=== PATIENT | female | born 1970 | race Caucasian/White ===

== ENCOUNTER 2017-09-23 12:31 | Day surgery (SDC) | payer OTHER ==
[~2017-09-23 12:31] MED LIST: Buffered Lidocaine 0.9% SYRIN* 5 ML/SYR SYRINGE INTRADERM ONE; Famotidine IV* 10 MG/ML 2 ML (20 mg) IV ONE
[2017-09-23] MEDS ORDERED: Famotidine IV* 10 MG/ML 2 ML (20 mg) ONE (12:36)
[2017-09-23] MEDS ORDERED: Naloxone* 0.4 MG/ML 1 ML VIAL IV PRN (13:21)
[2017-09-23] MEDS ORDERED: Acetaminophen TAB* 325 MG PO PRN (13:21)
[2017-09-23] MEDS ORDERED: DiMENhydriNATE IV* 50 MG/ML VIAL IV PUSH PRN (13:21)
[2017-09-23 16:38] VITALS: BP 109/74
--- NOTE | 2017-09-24 14:43 | PRO ---
CC: Tierra Greene NP * GASTROENTEROLOGY OPERATIVE REPORT: DATE OF PROCEDURE: 09/23/17. OPERATIVE PROCEDURE: Colonoscopy to terminal ileum. SURGEON: Aspen Singh MD. ANESTHESIA: MAC. HISTORY OF PRESENT ILLNESS: Rachel is a pleasant 47-year-old female who is presenting today for screening colonoscopy. She does admit to maternal grandmother with colon cancer and she was greater than 63 years in age when diagnosed. She currently denies any gastrointestinal complaints, but was seen in the office with complaints of rectal bleeding at that time. PREOPERATIVE DIAGNOSIS: Screening colonoscopy. POSTOPERATIVE DIAGNOSES: 1. Normal-appearing terminal ileum. 2. Small mouthed diverticula in the sigmoid colon. 3. 5 mm sessile rectosigmoid polyp with polypectomy. 4. Small non-bleeding internal hemorrhoids on retroflexion. 5. Fair colonoscopy preparation. RECOMMENDATIONS: The timing of the repeat colonoscopy will be determined upon review of biopsy results. DESCRIPTION OF PROCEDURE: Colonoscopy was explained in detail to the patient. The risks, benefits, complications, alternatives and possibilities of missed lesions were explained and understood. Complications included, but were not limited to reaction to anesthesia, aspiration, increased risk of bleeding, and perforation. All questions were answered. The patient demonstrated understanding of the conversation and informed consent was obtained. Next, the patient was brought to the endoscopy suite, placed in the left lateral recumbent position where blood pressure, cardiac, and oxygen monitors were applied. The patient was found to be a fit candidate for monitored anesthesia care. After adequate IV sedation was achieved, a digital rectal exam was performed, which revealed normal sphincter tone. No palpable masses were appreciated. Next, a standard pediatric Olympus colonoscope was inserted through the rectum, maneuvered all the way to the cecal base where the ileocecal valve and appendiceal orifice were identified and photographed. Next , the terminal ileum was intubated and was normal appearing. Subsequently, the colonoscope was withdrawn in a fashion that allowed adequate visualization of the bowel. The patient overall had a fair colonoscopy preparation. Aggressive irrigation and suctioning was performed in order to adequately visualize the mucosa. The cecum, ascending colon, transverse colon, descending colon were normal appearing. Entry into the sigmoid colon revealed a few small mouthed diverticula. Withdrawal into the rectosigmoid area revealed a 5- mm sessile polyp that was removed via Jumbo cold forceps. Hemostasis was seen at the polypectomy site. Further withdrawal into the rectum revealed small non- bleeding internal hemorrhoids. Air was then removed from the patient. Colonoscope was removed from the patient. The patient tolerated the procedure well. There were no immediate complications. After a period of observation, the patient was discharged home with a coal tram driver in stable condition. Thank you, Tierra Greene NP, for allowing us to participate in the care of your patient. If you should have any further questions or concerns, please do not hesitate to me. [id number]/[facility] #: [id number] [place]
== END 2017-09-23 16:50 | disposition home or self-care (01) ==
LOC: OR 12:31
PROVIDERS: ATTEND Internal Medicine Gastroenterology
DX: Z12.11 Encounter for screening for malignant neoplasm of colon (principal); K63.5 Polyp of colon; K64.8 Other hemorrhoids; K57.30 Diverticulosis of large intestine without perforation or abscess without bleeding; J45.909 Unspecified asthma, uncomplicated; F17.200 Nicotine dependence, unspecified, uncomplicated; E78.5 Hyperlipidemia, unspecified
CPT/HCPCS: 88305

== ENCOUNTER 2018-09-21 06:25 | Day surgery (SDC) | payer OTHER ==
[~2018-09-21 06:25] MED LIST changes: -Buffered Lidocaine 0.9% SYRIN* 5 ML/SYR SYRINGE INTRADERM ONE; +Buffered Lidocaine 1% SYRIN* 1 ML/SYRINGE INTRADERM ONE; +Dexamethasone IV* 4 MG/ML 1 ML (4 MG) IV SLOW PU ONE; +Lactated Ringers 1000 ML Bag* 1,000 ML IV SCH
[2018-09-21] MEDS ORDERED: Dexamethasone IV* 4 MG/ML 1 ML (4 MG) ONE ×2 (06:26→07:14)
[2018-09-21] MEDS ORDERED: Famotidine IV* 10 MG/ML 2 ML (20 mg) ONE (06:27)
[2018-09-21] MEDS ORDERED: ceFAZolin 2 GM PREMIX in ORs 2 GM/50 ML BAG IVPB ONE (06:29)
[2018-09-21] MEDS ORDERED: Lidocaine 1% INJ* 10 MG/ML 30 ML SDV ONE (07:13)
[2018-09-21] MEDS ORDERED: Bupivacaine 0.5% W/EPI SDV* 30 ML VIAL ONE (07:14)
[2018-09-21] MEDS ORDERED: Midazolam* 1 MG/ML 5 ML VIAL (5 MG) ONE (07:28)
[2018-09-21] MEDS ORDERED: fentaNYL* 50 MCG/ML 2 ML VIAL (100 MCG VIAL) ONE ×2 (07:28→08:17)
[2018-09-21] MEDS ORDERED: Ketorolac INJ* 30 MG/ML 1 ML VIAL ONE (07:29)
[2018-09-21] MEDS ORDERED: Ondansetron INJ* 2 MG/ML VIAL ONE (07:29)
[2018-09-21] MEDS ORDERED: Propofol* 10 MG/ML 20 ML BTL ONE (07:29)
[2018-09-21] MEDS ORDERED: Naloxone* 0.4 MG/ML 1 ML VIAL IV PRN (08:05)
[2018-09-21] MEDS ORDERED: Ondansetron INJ* 2 MG/ML VIAL IV PRN (08:05)
[2018-09-21] MEDS ORDERED: DiMENhydriNATE IV* 50 MG/ML VIAL IV PUSH PRN (08:05)
[2018-09-21] MEDS ORDERED: oxyCODONE/Acetamin 5/325 MG* TAB PO PRN (08:05)
[2018-09-21 08:43] VITALS: BP 110/63
--- NOTE | 2018-09-21 10:11 | OP ---
OPERATIVE REPORT: DATE OF OPERATION: 09/21/18 DATE OF : 66 SURGEON: Juan Alberto Newman DPM. MUSIC BOX MECHANIC: None. ANESTHESIA: MAC with local. PRE-OP DIAGNOSIS: Chronic painful right heel with plantar fasciosis and large calcaneal spur, right heel. POST-OP DIAGNOSIS: Chronic painful right heel with plantar fasciosis and large calcaneal spur, right heel. OPERATIVE PROCEDURE: 1. Plantar fasciotomy, right heel. 2. Excision of calcaneal spur, right heel. PATHOLOGY: Resected portions of the calcaneal spur and adjacent fascia from right heel. HEMOSTASIS: Pneumatic ankle tourniquet. ESTIMATED BLOOD LOSS: Less than 20 cc. INDICATIONS: The patient with chronic right heel pain. Prior MRI demonstrates inflammation within t he spur and adjacent calcaneus thickening and findings consistent with plantar fasciosis. She has ex hausted nonsurgical options. She cannot walk without pain and she opts for surgery at this time to a ttempt to decrease pain and improve function. DESCRIPTION OF PROCEDURE: The patient brought to the operating room and placed on the operating room table in the supine position. Anesthesia department administered IV sedation and peripheral nerve b locks were performed about the right ankle and heel with a 1:1 mixture of 1% lidocaine plain and 0.5% Marcaine plain. The right foot was prepped and draped in the usual fashion. The right foot was then exsanguinated with an Esmarch bandage and pneumatic ankle tourniquet was inflated to 250 mmHg about a well-padded right ankle. Attention was directed to the medial aspect of the right heel where a luda ear incision was made. The incision was deepened through subcutaneous tissue with care being taken t o retract neurovascular structures and cauterize superficial bleeders as needed. Dissection was hess ied down to the deep fascia, the portion of the abductor hallucis and the plantar fascia origin. Luda ear incision was made and blunt dissection was used to free and identify the origin of the plantar fa scia and the adjacent spur. Using a freer as well as the fluoroscopy, the spur was palpated and visu alized. Using a scissors, approximately two-thirds of the plantar fascia was transected, then rongeu r was used to resect the adjacent calcific portion of the fascia as well as portion of the calcaneal spur. Portions of this were sent off the field as specimen. The C-arm was used to confirm adequate resection of the spur; however, portion of the spur far lateral was determined to be left intact give n the remaining portion of the plantar fascia desired to be left intact as well. A handheld rasp was used to further resect and smooth the portion of the calcaneus was flushed with copious amoun ts of normal sterile saline. The subcutaneous tissue was reapproximated with 4-0 Vicryl and skin was closed with 3-0 and 4-0 nylon. 12 mg of dexamethasone phosphate was infiltrated into the surgical s ite and the surgical site was dressed with Xeroform gauze and a bulky mild decompressive dressing and 4x4 gauze, Shilo, and ABD pad as well, secured with a Coban wrap. The pneumatic ankle tourniquet wa s deflated about the right ankle and prompt hyperemic response was noted about all 5 digits of the danielle morales's right foot. Having appeared to tolerated the procedure and anesthesia well, the patient was transported via cart from the operating room to Recovery in satisfactory condition with cap refill le ss than 3 seconds to all digits of the right foot. [id number]/[facility] #: [id number]
== END 2018-09-21 09:18 | disposition home or self-care (01) ==
LOC: OREAST 06:25
PROVIDERS: ATTEND Podiatrist Foot Surgery
DX: M72.2 Plantar fascial fibromatosis (principal); M77.31 Calcaneal spur, right foot; J45.909 Unspecified asthma, uncomplicated; E11.9 Type 2 diabetes mellitus without complications; Z79.84 Long term (current) use of oral hypoglycemic drugs
CPT/HCPCS: 76000; 88304; 88311; J0690; J1100; J1885; J2250; J2405; J2704; J3010

== ENCOUNTER 2018-11-06 17:30 | Emergency (ER) | payer OTHER ==
[2018-11-06 17:53] VITALS: BP 138/84
--- NOTE | 2018-11-06 19:15 | UC ---
Lower Extremity/Ankle HPI - HPI Summary HPI Summary: 48-year-old female comes in with a chief complaint of right leg pain after a fall. The patient slipped and fell on ice. Had immediate pain in the right leg on the lateral aspect all the way from just below the knee to the right ankle. She is unable to bear any weight. She is extreme pain both in the proximal fibula and in the ankle. No laceration. Holding it still decreases the pain. - History of Current Complaint Chief Complaint: UCLowerExtremity Stated Complaint: LEG INJURY Time Seen by Provider: 11/06/18 18:31 Hx Last Menstrual Period: post menopause Pain Intensity: 10 - Allergies/Home Medications Allergies/Adverse Reactions: Allergies Allergy/AdvReac Type Severity Reaction Status Date / Time codeine Allergy Severe Anaphylatic Verified 09/21/18 06:35 Shock, hives latex Allergy Intermediate rash, hives Verified 09/21/18 06:35 COCONUT Allergy Severe Anaphylatic Uncoded 09/21/18 06:35 Shock wasps Allergy Severe Difficulty Uncoded 09/21/18 06:35 Breathing/Wheezing, HIVES PMH/Surg Hx/FS Hx/Imm Hx Previously Healthy: Yes Endocrine History: Diabetes Respiratory History: Asthma - Surgical History Surgical History: Yes Surgery Procedure, Year, and Place: right knee surgery x2 [place] 1986,1999; 2014- LEFT KNEE SURGERY [facility] [place]; Partial hysterectomy 1994 [place]; 04/2017 LEFT KNEE OBLITERATION; [facility] 1994 [facility]; ORAL SURGERY- removal of teeth; right foot surgery-heel spurs, plantar faschitis august 2018. lumpectomy left breast 2013 syr; 1994 [place]-. colonoscopy w/anesthesia [facility] [place] - Family History Known Family History: Positive: Non-Contributory - Social History Alcohol Use: None Substance Use Type: None Smoking Status (MU): Light Every Day Tobacco Smoker Type: Cigarettes Amount Used/How Often: 10 CIGS/DAY FOR 33 YRS Length of Time of Smoking/Using Tobacco: 20 YRS Have You Smoked in the Last Year: No When Did the Patient Quit Smoking/Using Tobacco: 3 years ago Review of Systems All Other Systems Reviewed And Are Negative: Yes Constitutional: Positive: Negative Skin: Positive: Negative Eyes: Positive: Negative ENT: Positive: Negative Respiratory: Positive: Negative Cardiovascular: Positive: Negative Gastrointestinal: Positive: Negative Motor: Positive: Negative Neurovascular: Positive: Negative Musculoskeletal: Positive: Other: - see hpi Neurological: Positive: Negative Psychological: Positive: Negative Is Patient Immunocompromised?: No Physical Exam Triage Information Reviewed: Yes Appearance: Well-Appearing, Well-Nourished, Pain Distress - mild with rt leg rom Vital Signs: Initial Vital Signs Temp 97.5 F 11/06/18 17:47 Pulse 76 11/06/18 17:47 Resp 16 11/06/18 17:47 BP 138/84 11/06/18 17:47 Pulse Ox 100 11/06/18 17:47 Vital Signs Reviewed: Yes Eye Exam: Normal Eyes: Positive: Conjunctiva Clear Neck exam: Normal Neck: Positive: Supple Respiratory: Positive: No respiratory distress Musculoskeletal: Positive: Other: - Condition is tender to palpation over the right occipital fibula. The knee joint itself is nontender to palpation. I do not see any knee effusion. Patient has swelling primarily in the lateral ankle. She is most tender in the lateral ankle she is also tender in the medial ankle. Positive dorsalis pedis pulses normal capillary refill no sensation deficits. Neurological Exam: Normal Neurological: Positive: Alert, Muscle Tone Normal Psychological Exam: Normal Psychological: Positive: Age Appropriate Behavior Skin Exam: Normal Lower Extremity Course/Dx - Course Course Of Treatment: I discussed the x-rays with the patient. Patient has a proximal right fibula fracture. On the RIGHT ankle x-ray and exam I'm concerned for the possibility of joint instability. I placed the patient in a posterior fiberglass splint for the right ankle and an Ricardo wrap for the right knee. Patient neurovascularly intact after placement of the splint and Ricardo wrap. Patient reports she has her own crutches and walker. Plan is to follow- up with orthopedics. I chose to splint the ankle because of my concern of instability. - Differential Dx/Diagnosis Provider Diagnosis: Fracture of proximal end of right fibula, Right ankle instability Discharge - Sign-Out/Discharge Documenting (check all that apply): Patient Departure All imaging exams completed and their final reports reviewed: No - Discharge Plan Condition: Stable Disposition: HOME Prescriptions: traMADol TAB* [Ultram*] 100 mg PO Q6HR PRN #40 tab MDD 400MG PRN Reason: Pain Patient Education Materials: Leg Fracture (ED), Ankle Dislocation (ED) Referrals: Tierra Greene NP [Primary Care Provider] - Dino Roach MD [Medical Doctor] - Additional Instructions: FOLLOW UP WITH ORTHOPEDICS. NO WEIGHT BEARING UNTIL CLEARED BY ORTHOPEDICS. GET RECHECKED FOR ANY WORSENING OF YOUR CONDITION OR QUESTIONS OR CONCERNS. - Billing Disposition and Condition Condition: STABLE Disposition: Home
== END 2018-11-06 19:30 | disposition home or self-care (01) ==
LOC: UCEAST 17:30
DX: S82.831A Other fracture of upper and lower end of right fibula, initial encounter for closed fracture (principal); M25.371 Other instability, right ankle; W00.0XXA Fall on same level due to ice and snow, initial encounter; Y92.9 Unspecified place or not applicable; E11.9 Type 2 diabetes mellitus without complications; Z79.84 Long term (current) use of oral hypoglycemic drugs; J45.909 Unspecified asthma, uncomplicated; Z91.030 Bee allergy status; Z91.040 Latex allergy status; Z88.5 Allergy status to narcotic agent; Z91.018 Allergy to other foods; Z87.891 Personal history of nicotine dependence
CPT/HCPCS: 99212; G0463

== ENCOUNTER 2018-11-16 07:59 | Day surgery (SDC) | payer OTHER ==
[~2018-11-16 07:59] MED LIST changes: -Dexamethasone IV* 4 MG/ML 1 ML (4 MG) IV SLOW PU ONE
[2018-11-16] MEDS ORDERED: Famotidine IV* 10 MG/ML 2 ML (20 mg) ONE (08:24)
[2018-11-16] MEDS ORDERED: ceFAZolin 2 GM in NS PREMIX(*) 2 GM/100 ML BAG IVPB ONE (08:24)
[2018-11-16] MEDS ORDERED: Ondansetron INJ* 2 MG/ML VIAL ONE (08:50)
[2018-11-16] MEDS ORDERED: Midazolam* 1 MG/ML 5 ML VIAL (5 MG) ONE (08:50)
[2018-11-16] MEDS ORDERED: Dexamethasone IV* 4 MG/ML 1 ML (4 MG) ONE (08:50)
[2018-11-16] MEDS ORDERED: fentaNYL* 50 MCG/ML 2 ML VIAL (100 MCG VIAL) ONE ×4 (08:50→11:15)
[2018-11-16] MEDS ORDERED: Propofol* 10 MG/ML 20 ML BTL ONE (08:50)
[2018-11-16] MEDS ORDERED: Lidocaine 2% PF * 5 ML VIAL ONE (08:50)
[2018-11-16] MEDS ORDERED: Bupivacaine 0.5%* 50 ML VIAL ONE (09:33)
[2018-11-16] MEDS ORDERED: Ketorolac INJ* 30 MG/ML 1 ML VIAL ONE (10:16)
[2018-11-16] MEDS ORDERED: Naloxone* 0.4 MG/ML 1 ML VIAL IV PRN (10:18)
[2018-11-16] MEDS ORDERED: Ondansetron INJ* 2 MG/ML VIAL IV PRN (10:18)
[2018-11-16] MEDS: fentaNYL* 50 MCG/ML 2 ML VIAL (100 MCG VIAL) IV PRN ×4 (10:58→11:30)
[2018-11-16] MEDS ORDERED: traMADol TAB* 50 MG ONE (11:50)
[2018-11-16 12:44] VITALS: BP 134/94
--- NOTE | 2018-11-16 18:38 | OP ---
Operative Report - Blank - Operative Report Date of Operation: 11/16/18 Note: PATIENT: Rachel Olmos DATE OF : 1970 DATE OF SURGERY: 11/16/2018 SURGEON: Dino Roach MD BRICK LAYER: SHARON House, whos assistance was necessary for positioning, retraction, help with instrumentation, and closure. ANESTHESIOLOGIST: Dr. Love PREOPERATIVE DIAGNOSIS: Right Maisonneuve Injury POSTOPERATIVE DIAGNOSIS: Right Maisonneuve Injury OPERATION: 1. Right ankle Maisonneuve injury with open reduction and internal fixation of the distal tibia-fibula syndesmosis. 4. Closed treatment of right proximal fibula fracture. ANESTHESIA: General IMPLANTS: Arthrex ankle fracture set plate and screws TOURNIQUET TIME: Less than 1 hour with a well-padded thigh tourniquet at 250mmHg SPECIMENS: none ESTIMATED BLOOD LOSS: minimal COMPLICATIONS: none STATUS: Stable from the operating room to the recovery room and then home. INDICATIONS FOR PROCEDURE: Rachel sustained the above injury. Both operative and non operative treatment alternatives were reviewed. Further, the nature and risks of surgery were reviewed in careful detail, in the office as well as the pre-operative holding area. Our discussions regarding the risks of surgery included, but were not limited to, infection, wound problems, nerve injury, neuroma, RSD, persistent symptoms, blood clot, nonunion, malunion, post-traumatic arthritis, hardware failure, failure of the surgery, and even the remote chance of catastrophic complication, including loss of limb. DESCRIPTION OF PROCEDURE: The patient was seen in the preoperative holding unit and informed written consent was obtained. The appropriate extremity was marked. The patient was then brought to the operating room and carefully positioned on the operating room table. Anesthesia was induced. All bony prominences were padded with great care. A well-padded thigh tourniquet was placed. A chlorhexidine based pre- scrub was performed followed by a chloraprep prep and drape in standard sterile fashion. A surgical safety pause was then conducted in which we confirmed the appropriate patient, extremity, planned procedure, availability of equipment, indication and administration of prophylactic antibiotics, and DVT prophylaxis in the form of a compression boot on the non-surgical extremity. I began with an Esmarch exsanguination of the limb and inflated the tourniquet. I then utilized a laterally based incision at the ankle. I reduced the distal tib-fib syndesmosis and provisionally held this with a large clamp. Reduction was confirmed on direct visualization, as well as fluoroscopically. I then placed a one third semitubular plate laterally on the fibula and placed 3 syndesmotic screws to stabilize the distal tib-fib syndesmosis. The reduction clamp was then removed and final fluoroscopic images were obtained. The proximal fibula fracture remained well reduced, so I made the decision to treat this in a closed manner. At this point, we irrigated copiously and then closed in layers meticulously utilizing 3-0 Monocryl for the deep and subdermal layers and taiwo for the skin. A sterile dressing was then applied followed by a splint with the ankle in a neutral position. The patient was then awakened from anesthesia and transferred to the recovery room in stable condition. There were no complications. All needle and sponge counts were correct at the end of the case. ATTESTATION: I attest I was present and scrubbed and performed the critical portions of the procedure myself. POSTOPERATIVE PLAN: The postop plan is for [id number] for an anticipated duration of 8 weeks. From months 2-3, WBAT in the boot. Months 3-4 in regular shoes with an ankle brace. Follow-up will be in 2 weeks. At that time we will likely transition into a [id number] aircast boot. We will plan on one month of formal anticoagulation.
== END 2018-11-16 12:46 | disposition home or self-care (01) ==
LOC: OR 07:59
PROVIDERS: ATTEND Orthopaedic Surgery
DX: S82.861A Displaced Maisonneuve's fracture of right leg, initial encounter for closed fracture (principal); S82.441A Displaced spiral fracture of shaft of right fibula, initial encounter for closed fracture; E11.9 Type 2 diabetes mellitus without complications; Z79.84 Long term (current) use of oral hypoglycemic drugs; Z72.0 Tobacco use; W01.0XXA Fall on same level from slipping, tripping and stumbling without subsequent striking against object, initial encounter; Y92.9 Unspecified place or not applicable
CPT/HCPCS: 76000; A9270-GY; C1713; C1776; J0690; J1100; J1885; J2250; J2405; J2704; J3010

== ENCOUNTER 2019-10-15 08:43 | Emergency (ER) | payer OTHER ==
[2019-10-15] MEDS ORDERED: Ketorolac INJ* 30 MG/ML 1 ML VIAL IM ONE (09:13)
[2019-10-15] MEDS ORDERED: LORazepam TAB(*) 1 MG PO ONE (09:13)
--- NOTE | 2019-10-15 09:17 | ED ---
Back Pain - HPI Summary HPI Summary: 49 year old F presenting to [facility] accompanied by male manager location complains of lower back pain that radiates into her hip since morning of 10/12/2019, worse since then. Patient reports going to bed the night before with no pain and waking up with symptoms. She thought it was a kidney infection and drank cranberry juice all weekend but the pain worsened. Patient states she has great difficulty ambulating and it hurts to roll over in bed. Denies any problems with urination. She is currently on Tramadol for knee pain and is allergic to Codeine. PMHx of thoracic meningitis in 2004. SHx of 3 surgeries on her right foot in 2019 for heels spurs and her ankle. The patient rates the pain 10/10 in severity. Symptoms aggravated by movement. Symptoms alleviated by nothing. - History of Current Complaint Chief Complaint: EDBackInjuryPain Stated Complaint: BACK PAIN PER PT Time Seen by Provider: 10/15/19 08:58 Hx Obtained From: Patient Hx Last Menstrual Period: post menopause Onset/Duration: Lasting Days, Still Present Onset/Duration: Started Days Ago Timing: Lasting Days Back Pain Location: Is Diffuse - radiates to hip Severity Currently: Severe Pain Intensity: 10 Pain Scale Used: 0-10 Numeric Aggravating Symptom(s): Movement Alleviating Symptom(s): Nothing Associated Signs And Symptoms: Positive: Negative - no problems with urination - Allergies/Home Medications Allergies/Adverse Reactions: Allergies Allergy/AdvReac Type Severity Reaction Status Date / Time codeine Allergy Severe Anaphylatic Verified 10/15/19 08:49 Shock, hives latex Allergy Intermediate rash, hives Verified 10/15/19 08:49 COCONUT Allergy Severe Anaphylatic Uncoded 10/15/19 08:49 Shock wasps Allergy Severe Difficulty Uncoded 10/15/19 08:49 Breathing/Wheezing, HIVES PMH/Surg Hx/FS Hx/Imm Hx Endocrine/Hematology History: Reports: Hx Diabetes - new diagnosis FINGER STICK QOD Denies: Hx Bone Marrow Disease, Hx Sickle Cell Disease, Hx Anemia Cardiovascular History: Reports: Hx Angina - ? X1 AT AGE 25, Other Cardiovascular Problems/Disorders - HIGH CHOLESTEROL Denies: Hx Hypertension, Hx Pacemaker/ICD Respiratory History: Reports: Hx Asthma Denies: Other Respiratory Problems/Disorders GI History: Denies: Other GI Disorders History: Denies: Hx Renal Disease Musculoskeletal History: Reports: Hx Arthritis - hips and knees, Hx Orthopedic Injury - Pk knee pain, with arthroscopic surgery, Other Musculoskeletal History - thoracic meningitis Sensory History: Reports: Hx Contacts or Glasses - glasses Denies: Hx Cataracts, Hx Glaucoma, Hx Hearing Aid Opthamlomology History: Reports: Hx Contacts or Glasses - glasses Denies: Hx Cataracts, Hx Glaucoma Neurological History: Reports: Other Neuro Impairments/Disorders - Hx of thoracic meningitis 2004 Psychiatric History: Denies: Hx Panic Disorder - Cancer History Hx Chemotherapy: No - Surgical History Surgery Procedure, Year, and Place: right knee surgery x2 [place] 1986,1999;. 2014 -LEFT KNEE SURGERY [facility] [place];. Partial hysterectomy 1994 [place];. 04/2017 LEFT KNEE OBLITERATION;[facility]. LAP YUE, APPY 1994 [place]; and appendectomy. ORAL SURGERY- removal of teeth;. right foot surgery-heel spurs, plantar faschitis august 2018. [facility]&C. lumpectomy left breast 2013 syr;. 1994 [place]-. colonoscopy w/anesthesia [facility]. HEEL SPUR 2018. RIGHT ANKLE 2018 Hx Anesthesia Reactions: No Infectious Disease History: No Infectious Disease History: Denies: Hx Clostridium Difficile, Hx Hepatitis, Hx Human Immunodeficiency Virus (HIV), Hx of Known/Suspected MRSA, Hx Shingles, Hx Tuberculosis, Hx Known/ Suspected VRE, Hx Known/Suspected VRSA, History Other Infectious Disease, Traveled Outside the [place] in Last 30 Days - Family History Known Family History: Positive: Other - mother had stroke - Social History Alcohol Use: None Substance Use Type: Reports: None Smoking Status (MU): Former Smoker Type: Cigarettes Amount Used/How Often: 5 cigs per day/DAY FOR 33 YRS Length of Time of Smoking/Using Tobacco: 20 YRS Have You Smoked in the Last Year: No Review of Systems Negative: dysuria, hematuria Musculoskeletal: Other - lower back pain that radiates to hips All Other Systems Reviewed And Are Negative: Yes Physical Exam - Summary Physical Exam Summary: Appearance: The patient is well-nourished in no acute distress and in no acute pain. Skin: The skin is warm and dry, and skin color reflects adequate perfusion. HEENT: The head is normocephalic and atraumatic. The pupils are equal and reactive. The conjunctivae are clear and without drainage. Nares are patent and without drainage. Mouth reveals moist mucous membranes, and the throat is without erythema and exudate. The external ears are intact. The ear canals are patent and without drainage. The tympanic membranes are intact. Neck: The neck is supple with full range of motion and non-tender. There are no carotid bruits. There is no neck vein distension. Respiratory: Chest is non-tender. Lungs are clear to auscultation and breath sounds are symmetrical and equal. Cardiovascular: Heart is regular rate and rhythm. There is no murmur or rub auscultated. There is no peripheral edema and pulses are symmetrical and equal. Abdomen: The abdomen is soft and non-tender. There are normal bowel sounds heard in all four quadrants and there is no organomegaly palpated. Musculoskeletal: Tenderness on the left sciatica, and positive straight leg raise Neurological: Patient is alert and oriented to person, place and time. The patient has symmetrical motor strength in all four extremities. Cranial nerves are grossly intact. Deep tendon reflexes are symmetrical and equal in all four extremities. Psychiatric: The patient has an appropriate affect and does not exhibit any anxiety or depression. Triage Information Reviewed: Yes Vital Signs On Initial Exam: Initial Vitals Temp Pulse Resp BP Pulse Ox 97.3 F 83 19 137/86 99 10/15/19 08:45 10/15/19 08:45 10/15/19 08:45 10/15/19 08:45 10/15/19 08:45 Vital Signs Reviewed: Yes Procedures - Sedation Patient Received Moderate/Deep Sedation with Procedure: No Diagnostics - Vital Signs Vital Signs Temp Pulse Resp BP Pulse Ox 10/15/19 08:45 97.3 F 83 19 137/86 99 - Laboratory Lab Statement: Any lab studies that have been ordered have been reviewed, and results considered in the medical decision making process. - CT CT Spine Lumbar CT Interpretation Completed By: Radiologist Summary of CT Findings: IMPRESSION: 1. 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 2. THERE IS SEVERE NARROWING OF THE CENTRAL CANAL AT L3-L4. 3. THERE IS MULTILEVEL NEUROFORAMINAL NARROWING NOTED ABOVE. has reviewed this report. Back Pain Course/Dx - Course Course Of Treatment: Ms. Olmos got some improvement with Ativan as a muscle relaxer here in the department. CT shows that she has significant narrowing at L3 4 she may need an MRI at some point. The time being and add Ativan as a muscle relaxer and encourage her to use ibuprofen and her tramadol as needed. She is tolerating the depressive affect well here - Diagnoses Provider Diagnoses: Lower back pain Discharge ED - Sign-Out/Discharge Documenting (check all that apply): Patient Departure - discharge - Discharge Plan Condition: Stable Disposition: HOME Prescriptions: LORazepam TAB(*) [Ativan TAB(*)] 1 mg PO Q6H PRN #20 tab MDD 4 PRN Reason: Pain Patient Education Materials: Low Back Strain (ED) Referrals: Tierra Greene NP [Primary Care Provider] - Additional Instructions: Please follow up with your primary care provider in 2-3 days. Return to the Emergency Department with new or worsening symptoms. - Billing Disposition and Condition Condition: STABLE Disposition: Home - Attestation Statements Document Initiated by Anthony: Yes Documenting Scribe: Claudio Pérez Provider For Whom Anthony is Documenting (Include Credential): Vasyl Mulligan MD Scribe Attestation: Claudio Loco, scribed for Vasyl Mulligan MD on 10/15/19 at 1551. Scribe Documentation Reviewed: Yes Provider Attestation: The documentation as recorded by the Claudio reynolds accurately reflects the service I personally performed and the decisions made by me, Vasyl Mulligan MD Status of Scribe Document: Viewed
[2019-10-15 11:10] VITALS: BP 111/76
== END 2019-10-15 11:09 | disposition home or self-care (01) ==
LOC: ED 08:43
DX: M54.5 Low back pain (principal); M47.816 Spondylosis without myelopathy or radiculopathy, lumbar region; M51.36 Other intervertebral disc degeneration, lumbar region; E11.9 Type 2 diabetes mellitus without complications; Z91.030 Bee allergy status; Z91.040 Latex allergy status; Z88.5 Allergy status to narcotic agent; Z91.018 Allergy to other foods; Z87.891 Personal history of nicotine dependence
CPT/HCPCS: 72131; 96372; 99283; A9270-GY; J1885

== ENCOUNTER 2024-05-15 05:32 | Observation (INO) ==
[~2024-05-15 05:32] MED LIST changes: -Buffered Lidocaine 1% SYRIN* 1 ML/SYRINGE INTRADERM ONE; -Famotidine IV* 10 MG/ML 2 ML (20 mg) IV ONE; -Lactated Ringers 1000 ML Bag* 1,000 ML IV SCH; +Naloxone 0.4 mg VIAL 0.4 mg/ml 1 ml VIAL IV PRN; +Ondansetron 4 mg VIAL 2 MG/ML 2 ml VIAL IV PRN
[2024-05-15] MEDS ORDERED: Tranexamic Acid 1 GM/100ML BAG 2,000 MG/200 ML BAG IV ONE (06:16)
[2024-05-15] MEDS ORDERED: Famotidine IV 10 MG/ML 2 ml VIAL (20 mg) ONE (06:16)
[2024-05-15] MEDS ORDERED: ceFAZolin 2 GM PREMIX 2 GM/50 ML BAG ONE (06:16)
[2024-05-15] MEDS ORDERED: fentaNYL 100 mcg/2 ml 50 MCG/ML VIAL ONE ×3 (06:31→11:14)
[2024-05-15] MEDS ORDERED: Midazolam 2 mg/2 ml VIAL 1 mg/ml 2 ml VIAL (2 mg) ONE (06:31)
[2024-05-15] MEDS ORDERED: Lidocaine 2% PF 5 ML VIAL ONE (06:31)
[2024-05-15] MEDS ORDERED: Propofol 0 MG/0 ML BTL ONE (06:31)
[2024-05-15] MEDS ORDERED: Ondansetron 4 mg VIAL 2 MG/ML 2 ml VIAL ONE (06:38)
[2024-05-15] MEDS ORDERED: Dexamethasone IV 4 MG/ML VIAL 1 ml VIAL ONE (06:38)
[2024-05-15] MEDS: Famotidine IV 10 MG/ML 2 ml VIAL (20 mg) IV ONE (06:42)
[2024-05-15 06:45] LABS: Rapid COVID-19 Molecular Undetected (Undetected)
[2024-05-15] MEDS ORDERED: Rocuronium 50 mg VIAL 10 mg/ml 5 ml VIAL (50 mg) ONE ×2 (06:46→08:08)
[2024-05-15] MEDS ORDERED: ceFAZolin VIAL VIAL ONE (07:43)
[2024-05-15] MEDS ORDERED: ROPIVACAINE 5 MG/ML 30 ML BTL (0.5%) ONE (07:44)
[2024-05-15] MEDS ORDERED: Lactulose 30 ml UDC PO PRN (07:54)
[2024-05-15] MEDS ORDERED: Ondansetron 4 mg VIAL 2 MG/ML 2 ml VIAL IV PRN (07:54)
[2024-05-15] MEDS ORDERED: Magnesium Hydroxide LIQ 30 ML UDC PO PRN (07:54)
[2024-05-15] MEDS ORDERED: Calcium Carb (TUMS) 500 mg CHEW TAB PO PRN (07:54)
[2024-05-15] MEDS ORDERED: Ondansetron ODT 4 mg TAB 4 MG TAB PO PRN (07:54)
[2024-05-15] MEDS ORDERED: Morphine 2 MG/ML SYRINGE IV PRN (07:54)
[2024-05-15] MEDS ORDERED: HYDROmorphone 0.5 MG/0.5 ML SYRINGE ONE ×2 (08:15→09:04)
[2024-05-15] MEDS: fentaNYL 100 mcg/2 ml 50 MCG/ML VIAL IV PRN (10:52)
[2024-05-15] MEDS ORDERED: Bupivacaine 0.5% 50 ML MDV VIAL ONE (11:12)
[2024-05-15] MEDS: Magnesium Hydroxide LIQ 30 ML UDC PO SCH (13:40)
[2024-05-15] MEDS: Lactated Ringers 1000 ml BAG 1,000 ML IV SCH ×2 (13:40)
[2024-05-15] MEDS: Buffered Lidocaine 1% SYRIN 1 ml INTRADERM ONE (13:40)
[2024-05-15] MEDS: Vitamin THERAPEUTIC TAB PO SCH (13:41)
[2024-05-15] MEDS: ceFAZolin 2 GM PREMIX 2 GM/50 ML BAG IV SCH ×2 (14:23→16:54)
[2024-05-16 05:52] LABS: Hematocrit 38.2 % (35-45); Hemoglobin 13.2 g/dL (11.5-14.3); Mean Platelet Volume 8.1 fL (7.5-11.2); Platelet Count 280 10^3/uL (150-450)
[2024-05-16 06:11] LABS: Calcium 9.3 mg/dL (8.6-10.3); Creatinine, Serum 0.76 mg/dL (0.51-0.95); Potassium 4.9 mmol/L (3.5-5.0); eGFR CKD-EPI 91.9 (>60)
[2024-05-16] MEDS: Mometasone/Formoter 200/5 MDI INH SCH (07:55)
[2024-05-16 09:53] VITALS: BP 126/76
[2024-05-16] MEDS ORDERED: MULTIVITAMIN PO SCH (21:00)
[2024-05-16] MEDS ORDERED: VIBEGRON 75 MG PO SCH (21:00)
[2024-05-16] MEDS ORDERED: CMC: Pravastatin 20 mg TAB (NF) PO SCH (21:00)
== END 2024-05-16 11:45 | disposition home or self-care (01) ==
LOC: SSU 05:32 → OR 05:32
PROVIDERS: ADMIT Orthopaedic Surgery Adult Reconstructive Orthopaedic Surgery; ATTEND Orthopaedic Surgery Adult Reconstructive Orthopaedic Surgery